=== PATIENT | female | born 1970 | race Caucasian/White ===

== ENCOUNTER 2019-06-08 11:16 | Observation (INO) ==
[2019-06-08] MEDS ORDERED: HEPARIN (PORCINE) 1000 UNIT/ML 10 ML (CATH LAB USE ONLY) ONE (11:58)
--- NOTE | 2019-06-08 12:21 | Pre Anesthesia Assessment ---
Date of Service June 08, 2019 Pre Sedation Assessment Vital Signs Temp Pulse BP Pulse Ox 06/08/19 11:45 36.8 C 58 L 119/74 98 Cardiovascular RRR, no murmur, no edema Respiratory normal respiratory effort, lungs clear to auscultation Pre-Sedation Airway Assessment Smoking Status: Current some day smoker Hx Sleep Apnea: No Short, Thick Neck: No Thyromental Distance: > or= 3.5 Finger Breadths Oral Cavity: + WNL Mallampati Class: II ASA: ASA3 NPO Status Date of Last Intake of Fluids: 06/08/19 Time of Last Intake of Fluids: 06:00 Date of Last Intake of Solid Food: 06/07/19 Time of Last Intake of Solid Foods: 19:00 Procedure Planning Contraindications for Sedation: none Current Medications Reviewed: Yes Notes The planned sedation has been discussed with the patient. Informed Consent was obtained. I have identified the patient, determined the appropriateness of sedation and have assessed the patient immediately prior to the procedure. All medicine(s) and interventions are by my order.
--- NOTE | 2019-06-08 12:21 | History & Physical Bridge Note ---
Date of Service June 08, 2019 History & Physical Bridge Note I have examined the patient, reviewed the History & Physical and in the interval since the performance of the History & Physical I have noted the following changes of clinical significance: no changes noted
[2019-06-08] MEDS ORDERED: MIDAZOLAM HCL 5 MG/ML 1 ML VIAL ONE ×3 (12:30→14:32)
[2019-06-08] MEDS ORDERED: fentaNYL citrate 100 MCG/2 ML VIAL ONE ×4 (12:31→15:06)
[2019-06-08] MEDS ORDERED: ACETAMINOPHEN 325 MG TAB PO PRN ×2 (15:55→15:57)
[2019-06-08] MEDS ORDERED: ALBUTEROL HFA 8 GM INHALER INH PRN (15:57)
--- NOTE | 2019-06-08 15:58 | Post Anesthesia Assessment ---
Date of Service June 08, 2019 Post Sedation Assessment Vital Signs Temp Pulse BP Pulse Ox 06/08/19 11:45 36.8 C 58 L 119/74 98 Recovery Score Activity: Moves 4 extremities Respiration: Deep Breath/Cough Circulation: +/-20% PreAnes Value Consciousness: Fully Awake Oxygen Saturation: > 92% On Room Air Discharge Sedation Level of Care: Fast Track Phase II Post Sedation Plan On clinical assessment, the patient appears to have tolerated the sedation without complications. Patient is recovering as anticipated. Patient will continue to be monitored by nursing and may be discharged when sedation discharge criteria are met per below protocol. Upon Completions of procedure up to 15 minutes continue every 5 minute vital signs and the P.A.R. score; then discharge to a Phase I or Fast Track to Phase II per the following guidelines: * Discharge Patient to appropriate Phase II area if PAR is 8 or greater or return to pre- procedure baseline. The post - procedure orders will be as directed. * If PAR score is less than 8 or not return to pre-procedure baseline then patient will follow Phase I monitoring till PAR is reached for Phase II. The Phase I may be done in procedure room or may call to secure a Phase I area. * If naloxone or flumazenil are used for reversal, hold in Phase I for continued monitoring from when last reversal dose was given for a minimum of 60 minutes or longer pending the nurse and/or physician discretion of patient condition before discharge to Phase II. Please call the Sedation Physician to re-evaluate and complete post-note for discharge to Phase II area. Do NOT discharge from procedure sedation or Phase 1 until post- sedation evaluation note is complete by procedure /sedation MD Sedation Discharge Instructions to be given to the patient at discharge to home.
--- NOTE | 2019-06-08 15:58 | Operative Report ---
Post Operative Report Pre & Post Diagnosis paroxysmal atrial flutter Operation Date: 06/08/19 13:00 <No data on this case meets the specified criteria> I identified the patient and participated in the time-out.: Yes Procedure Operation Date: 06/08/19 13:00 Actual Procedures p EPS + Ablation for SVT Flutter - Felicia Saldana DO s LA Pacing (Add-On) - Felicia Saldana DO 3d mapping Surgeon Felicia Saldana, Side Stitcher none Estimated Blood Loss 5 Findings Consistent with Post-Op Diagnosis Specimens none Description of Procedure see official report I attest to the content of the Intraoperative Record and any orders documented therein. Any exceptions are noted below.
--- NOTE | 2019-06-08 16:02 | Discharge Summary ---
Date of Service June 09, 2019 Admission HPI Per Admitting Provider Pt admitted for elective atrial flutter ablation Admission Exam Per Admitting Provider aaox3, NAD NC/AT, EOMI Supple No JVD Nrl S1/S2, No murmur CTA b/l no w/r/r soft nt/nd no LE edema b/l skin intact no focal deficits Principal Diagnosis paroxysmal atrial flutter s/p ablation Discharge Exam aaox3, NAD NC/AT, EOMI Supple No JVD Nrl S1/S2, No murmur CTA b/l no w/r/r soft nt/nd no LE edema b/l skin intact no focal deficits ENMT Mallampati Class: II Respiratory normal respiratory effort, lungs clear to auscultation Cardiovascular RRR, no murmur, no edema Discharge Data Allergies Allergy/AdvReac Type Severity Reaction Status Date / Time aspirin Allergy Severe RESPIRATORY Verified 04/26/19 13:40 DISTRESS Iodinated Contrast Media Allergy Severe HIVES, Verified 04/26/19 13:40 ITCHY THROAT latex Allergy Severe ANAPHYLAXIS Verified 04/26/19 13:40 shellfish derived Allergy Intermediate HIVES Verified 04/26/19 13:40 Sulfa (Sulfonamide Allergy Intermediate RASH Verified 04/26/19 13:40 Antibiotics) meperidine AdvReac Intermediate VERTIGO, Verified 04/26/19 13:40 TACHYCARDIA theophylline AdvReac Mild ABD PAIN Verified 04/26/19 13:40 Procedures Performed Operation Date: 06/08/19 13:00 Actual Procedures p EPS + Ablation for SVT Flutter - DO yoli Vee LA Pacing (Add-On) - Felicia Saldana DO Ordered Studies ECG: SB 06/08/19 07:00 EP Lab Images for PACS ONCE Hospital Course (1) Atrial flutter: Total Time Total Time Spent Total Time Spent (In Minutes): 30 Total Time Includes: Examination of the Patient, Discharge Planning, Medication Reconciliation and Other Discharge Plan Discharge Items Patient Disposition: Home - Self-Care Reason For Visit: SVT FLUTTER ABLATION Discharge Diagnosis: atrial flutter s/p ablation Condition on Discharge: Good Activity: As commented below Lifting: No more than 10 pounds Lifting Comment: no heavy lifting or squating for 1 week Bathing: No limitations Non-emergency contact: Deep Submergence Vehicle Operator Call non-emergency contact if: you have any medication questions Follow-up/Referrals: Michelle Casper DO [Primary Care Provider] - Diet: Heart Healthy Addtl Attending Provider Instructions: f/u with Dr. Saldana in 1 month Pending Studies at Discharge: No Stand-Alone Forms: [facility] Medications and DC Order Prescriptions: Continued sotalol 80 mg Tablet 40 mg PO BID RF: 0 albuterol sulfate 90 mcg/actuation Hfa Aerosol Inhaler 1 inh INHALATION QID PRN (Reason: sob) RF: 0 Discontinued acetaminophen [Tylenol] 325 mg Tablet 325 mg PO QID PRN (Reason: Pain) RF: 0 Discharge Orders: Discharge Order (Routine); Ordered 06/09/19 Ordered By: Felicia Saldana Admission Data Admit Date/Time: 06/08/19 14:54 Attending Provider: Felicia Saldana Admit Provider: Felicia Saldana Primary Care Provider: Michelle Casper
[2019-06-08] MEDS: OXYCODONE/ACETAMINOPHEN 5mg/325mg TAB PO PRN ×2 (17:39→22:40)
--- NOTE | 2019-06-09 02:39 | Operative Report (OR) ---
DATE OF OPERATION: 06/08/2019 PREOPERATIVE DIAGNOSIS: Paroxysmal atrial flutter POSTOPERATIVE DIAGNOSIS: same PROCEDURE: Electrophysiology study, 3D mapping of the His bundle region as well as the cavotricuspid isthmus and the right atrium, left atrial coronary sinus pacing and radiofrequency ablation of the cavotricuspid isthmus. SURGEON: Felicia Saldana DO ASSISTANTS: None. ANESTHESIA: Monitored conscious sedation administered under my supervision by Radha Will. Start time 13:12 and end time 15:15. Total of 15 mg of Versed and 375 mcg of fentanyl. INTRAVENOUS FLUIDS: 45 mL. BLOOD LOSS: 5 mL. URINE OUTPUT: Not applicable. SPECIMENS: None. FINDINGS: See below. DRAINS: None. INDICATIONS: This is a 48-year-old female with past medical history for paroxysmal atrial flutter where she was diagnosed in November of 2018. She was started on sotalol in 12/2018, but she is not tolerating it due to GI upset and increased fatigue. She is not on any anticoagulation. CHADS2-VASc score of 1, just for female. Additional past medical history is sinus bradycardia, history of gastric bypass, obstructive sleep apnea, anxiety, and iron deficiency anemia. Due to her not tolerating the sotalol, she was recommended atrial flutter ablation. CONSENT: Consent was obtained prior to the patient going into the electrophysiology lab. The patient was informed of the risks, benefits and alternative procedure. Risks include but not limited to sudden cardiac , cardiac arrhythmias, cerebrovascular accident, myocardial infarction, injury to the blood vessels, chamber of the heart, lung, bleeding, and infection. The patient understood these risks and agreed to the procedure as planned. Informed consent was obtained. DESCRIPTION OF THE PROCEDURE: The patient was brought into the electrophysiology lab in a fasting state. She was connected to continuous bus driver/monitor. Timeout was performed to ensure patient identity and procedure correctly. The patient was prepped and draped over the bilateral groins in normal surgical standard fashion. Monitored conscious sedation was given throughout the procedure for patient's comfort level. [place] precautions maintained throughout the procedure. A 10 mL of 1% lidocaine were given in the bilateral groins for local anesthesia. Then using modified Seldinger technique, venous access was obtained in the following manner. The left femoral vein had a 7-[place] sheath followed by a 20-pole [employer]ense Halo catheter positioned around the right atrium and a 7-[place] sheath followed by a coronary sinus Decapolar catheter positioned down the coronary sinus. The right femoral vein initially had a 6-[place] sheath that was ultimately swapped out for an SRO catheter and the Thermo[employer] ablation DF curved Biosense catheter. Of note, the first when I used the D curve broke, so we had a swap out for another one. With the ablation catheter, I did 3D mapping of the His bundle cloud and interestingly, the AH was 86 and the HV was 50. Then, I 3D mapped the C/S OS and the IVC-RA junction. I did try to measure what the distance was across the CTI by pacing the coronary sinus and measuring it to the Halo, it was about 55 I believe. Then, we set up to try to start the ablation, I put the catheter right at the tricuspid valve and gave a series of radiofrequency gay at 35 adame down to the IVC only about 20 seconds in duration, maybe 30 utmost. There was a lot of ridges and so I went medial and lateral to this ridge, it never seemed like the timing was that great when I was trying to see if there was block bidirectional. Ultimately, I got [address] So I am not sure if there was successful bidirectional block; however, I did a good amount of gay and every time I checked the line, it looks like there was split A signals, so I am not sure if maybe all the ridges in her right atrium was affecting the timing because when I paced. Ultimately, I did a post-ablation electrophysiology study with the following findings: CA interval 146, QRS 100 milliseconds, QT 390 milliseconds, AH 90 milliseconds, HV 44 milliseconds and the sinus cycle length 1000 milliseconds, AV Wenckebach was 40 milliseconds, AV node 600/360 and 500/410. The atrial was 600/280 and 500/280. The RV ERP was 600/210 and 400/220 and the catheters were all removed from the body and the sheaths were pulled and manual compression was used to establish hemostasis. IMPRESSION: 1. Radiofrequency ablation of the CTI line, unsure if I really have bidirectional block, but I doubled the timing across the CTI almost. 2. Normal atrioventricular reshma pathology. PLAN: Monitor patient overnight, stop her sotalol. No heavy lifting or squatting for 1 week and she can follow up in my office in 1 month's time. I attest to the content of the Intraoperative Record and any orders documented therein. Any exceptions are noted below. MTDD
[2019-06-09] MEDS: OXYCODONE/ACETAMINOPHEN 5mg/325mg TAB PO PRN ×2 (02:51→06:31)
[2019-06-09 05:10] VITALS: TEMP 97.7; O2SAT 98
[2019-06-09 07:15] VITALS: BP 100/67
[2019-06-09 09:51] VITALS: PULSE 62
--- NOTE | 2019-06-09 17:55 | Electrocardiogram Report ---
Test Reason : Blood Pressure : / mmHG Vent. Rate : 061 BPM Atrial Rate : 061 BPM P-R Int : 142 ms QRS Dur : 098 ms QT Int : 424 ms P-R-T Axes : 048 035 018 degrees QTc Int : 426 ms Normal sinus rhythm Normal ECG When compared with ECG of 23-MAY-2011 12:16, No significant change was found Confirmed by Roland Parekh ([id number]) on 06/09/2019 5:54:59 PM Referred By: Felicia Saldana Confirmed By:Roland Parekh
== END 2019-06-09 10:05 | disposition home or self-care (01) ==
LOC: 2S 11:16 → EP 11:16